=== PATIENT | female | born 1955 | race Caucasian/White ===

== ENCOUNTER 2021-10-15 10:04 | Emergency (ER) | payer MEDICARE | END 2021-10-15 11:25 | disposition home or self-care (01) | LOC: LB.ED 10:04 | DX: J06.9 Acute upper respiratory infection, unspecified (principal); E78.00 Pure hypercholesterolemia, unspecified; I10 Essential (primary) hypertension; Z86.16 Personal history of COVID-19; Z79.82 Long term (current) use of aspirin; Z79.899 Other long term (current) drug therapy | CPT/HCPCS: 36415; 85025; 87804; 87804-59; 99283 ==

== ENCOUNTER 2023-02-19 07:54 | Emergency (ER) | payer MEDICARE ==
[2023-02-19] MEDS ORDERED: Aspirin 81 MG Tab.Chew PO ONE (08:22)
[2023-02-19] MEDS ORDERED: Sodium Chloride 0.9% 10 ML Syringe FLUSH PRN (08:23)
[2023-02-19 08:36] LABS: BASOPHILS ABSOLUTE AUTO 0.04 K/uL (0.02-0.10); BASOPHILS PERCENT AUTO 0.5 % (0.0-0.5); EOSINOPHILS ABSOLUTE AUTO 0.24 K/uL (0.04-0.40); EOSINOPHILS PERCENT AUTO 3.1 % (1.0-5.0); HEMATOCRIT 43.6 % (37.0-47.0); HEMOGLOBIN 14.8 g/dL (11.5-16.5); LYMPHOCYTES ABSOLUTE AUTO 2.08 K/uL (1.50-4.00); LYMPHOCYTES PERCENT AUTO 26.9 % (20.0-40.0); MEAN CORPUSCULAR HEMOGLOBIN 29.6 pg (27.0-32.0); MEAN CORPUSCULAR HGB CONC 33.9 g/dL (31.0-35.0); MEAN CORPUSCULAR VOLUME 87 fL (76-96); MEAN PLATELET VOLUME 10.9 fL (6.0-10.0); NEUTROPHILS ABSOLUTE AUTO 4.68 K/uL (2.00-7.50); NEUTROPHILS PERCENT AUTO 60.5 % (45.0-70.0); PLATELET COUNT,PLT 220 K/uL (150-500); RED CELL DISTRIBUTION WIDTH 13.3 % (11.0-16.0); WHITE BLOOD CELL COUNT,WBC 7.7 K/uL (4.0-11.0)
[2023-02-19 08:46] LABS: ALBUMIN 3.8 g/dL (3.4-5.0); ANION GAP 13.8 mmol/L (5.0-15.0); BILIRUBIN TOTAL 0.6 mg/dL (0.0-1.0); BUN/CREATININE RATIO 16.2 (6-25); CALCIUM 8.9 mg/dL (8.5-10.1); CREATININE 0.74 mg/dL (0.55-1.02); EST CRCL DRUG DOSING (CG) 62.83 mL/min; POTASSIUM,K 3.8 mmol/L (3.5-5.1); PROTEIN TOTAL,TP 7.6 g/dL (6.4-8.2)
[2023-02-19 08:50] LABS: MAGNESIUM 1.7 mg/dL (1.8-2.4); TROPONIN I HIGH SENSITIVITY 4.6 pg/ml (<=60.4)
[2023-02-19] MEDS ORDERED: Ketorolac 30 MG/ML SDV IVPUSH ONE (08:55)
[2023-02-19] MEDS ORDERED: Ketorolac 30 MG/ML SDV ONE (08:59)
== END 2023-02-19 09:34 | disposition home or self-care (01) ==
LOC: LB.ED 07:54
DX: R09.1 Pleurisy (principal); I10 Essential (primary) hypertension; E66.9 Obesity, unspecified; Z79.82 Long term (current) use of aspirin; Z68.31 Body mass index [BMI] 31.0-31.9, adult
CPT/HCPCS: 36415; 71250; 80053; 83735; 84484; 85025; 93005; 96374; 99284; A9270; J1885

== ENCOUNTER 2024-05-07 08:18 | Emergency (ER) | payer MEDICARE ==
[2024-05-07 08:50] LABS: BASOPHILS ABSOLUTE AUTO 0.04 K/uL (0.02-0.10); BASOPHILS PERCENT AUTO 0.6 % (0.0-0.5); EOSINOPHILS ABSOLUTE AUTO 0.17 K/uL (0.04-0.40); EOSINOPHILS PERCENT AUTO 2.5 % (1.0-5.0); HEMATOCRIT 44.6 % (37.0-47.0); LYMPHOCYTES ABSOLUTE AUTO 2.19 K/uL (1.50-4.00); LYMPHOCYTES PERCENT AUTO 32.4 % (20.0-40.0); MEAN CORPUSCULAR HEMOGLOBIN 28.8 pg (27.0-32.0); MEAN CORPUSCULAR HGB CONC 33.6 g/dL (31.0-35.0); MEAN CORPUSCULAR VOLUME 86 fL (76-96); MEAN PLATELET VOLUME 10.5 fL (6.0-10.0); MONOCYTES ABSOLUTE AUTO 0.42 K/uL (0.20-0.80); MONOCYTES PERCENT AUTO 6.2 % (3.0-10.0); NEUTROPHILS ABSOLUTE AUTO 3.93 K/uL (2.00-7.50); NEUTROPHILS PERCENT AUTO 58.3 % (45.0-70.0); PLATELET COUNT,PLT 194 K/uL (150-500); RED CELL DISTRIBUTION WIDTH 13.3 % (11.0-16.0); WHITE BLOOD CELL COUNT,WBC 6.8 K/uL (4.0-11.0)
[2024-05-07] MEDS: HYDROmorphone 2 MG/ML Syringe IVPUSH ONE (08:57)
[2024-05-07] MEDS: Sodium Chloride 0.9% 1,000 ML IV ONE (09:00)
[2024-05-07 09:14] LABS: ALBUMIN 3.8 g/dL (3.4-5.0); ANION GAP 13.7 mmol/L (5.0-15.0); BILIRUBIN TOTAL 0.6 mg/dL (0.0-1.0); BUN/CREATININE RATIO 11.5 (6-25); CALCIUM 9.4 mg/dL (8.5-10.1); CREATININE 0.78 mg/dL (0.55-1.02); EST CRCL DRUG DOSING (CG) 58.78 mL/min; POTASSIUM,K 3.7 mmol/L (3.5-5.1); PROTEIN TOTAL,TP 7.5 g/dL (6.4-8.2)
[2024-05-07 09:18] LABS: APPEARANCE,URINE CLEAR (CLEAR); BILIRUBIN,URINE NEGATIVE (NEGATIVE); COLOR,URINE YELLOW; GLUCOSE,URINE NEGATIVE (NEGATIVE); KETONES,URINE NEGATIVE (NEGATIVE); LEUKOCYTE ESTERASE,URINE NEGATIVE (NEGATIVE); NITRITE,URINE NEGATIVE (NEGATIVE); OCCULT BLOOD,URINE TRACE-INTACT (NEGATIVE); PH,URINE 6.5 (5.0-8.0); PROTEIN,URINE NEGATIVE (NEGATIVE); UROBILINOGEN,URINE 0.2 E.U./dL (0.2-1.0)
[2024-05-07 09:21] LABS: EPITHELIAL CELLS,URINE OCCASIONAL /HPF; RBC,URINE 0-5 /HPF; WBC,URINE NOT SEEN /HPF
[2024-05-07] MEDS: Ondansetron 4 MG/2 ML SDV IVPUSH ONE (09:33)
[2024-05-07] MEDS: Ondansetron 4 MG/2 ML SDV ONE (09:50)
[2024-05-07] MEDS: Naloxone 2 MG/2 ML Syringe IVPUSH PRN (09:57)
[2024-05-07] MEDS: Naloxone 2 MG/2 ML Syringe ONE (09:58)
[2024-05-07] MEDS: diphenhydrAMINE 50 MG/ML SDV IVPUSH ONE (10:07)
[2024-05-07] MEDS: diphenhydrAMINE 50 MG/ML SDV ONE (10:09)
[2024-05-07] MEDS: Ketorolac 30 MG/ML SDV IVPUSH ONE (10:14)
[2024-05-07] MEDS: Ketorolac 30 MG/ML SDV ONE (10:15)
[2024-05-07] MEDS: Acetaminophen/HYDROcodone 325-5 MG Tab PO ONE (10:59)
[2024-05-07] MEDS: Acetaminophen/HYDROcodone 325-5 MG Tab ONE (11:53)
== END 2024-05-07 12:50 | disposition home or self-care (01) ==
LOC: MERGE 08:18 → LB.ED 08:18
DX: R10.9 Unspecified abdominal pain (principal); I10 Essential (primary) hypertension; E78.00 Pure hypercholesterolemia, unspecified; Z79.899 Other long term (current) drug therapy
CPT/HCPCS: 36415; 74176; 80053; 81001; 83690; 84484; 85025; 93005; 96361; 96374; 96375; 99284-25; A9270-GY; J1170; J1200; J1885; J2310; J2405; J7030

== ENCOUNTER 2024-07-20 16:25 | Emergency (ER) | payer MEDICARE ==
[2024-07-20] MEDS: Ondansetron 4 MG/2 ML SDV IVPUSH ONE (16:41)
[2024-07-20] MEDS: fentaNYL 100 MCG/2 ML SDV IVPUSH SCH (16:45)
[2024-07-20] MEDS: Morphine 4 MG/ML VIAL IVPUSH ONE ×2 (17:50→19:15)
[2024-07-20] MEDS: Morphine 4 MG/ML VIAL ONE ×2 (17:52→19:19)
[2024-07-20] MEDS ORDERED: Acetaminophen/HYDROcodone 325-5 MG Tab ONE (19:30)
[2024-07-20] MEDS ORDERED: Ondansetron 4 MG Tab.DIS ONE (19:30)
== END 2024-07-20 19:40 | disposition home or self-care (01) ==
LOC: LB.ED 16:25
DX: S42.252A Displaced fracture of greater tuberosity of left humerus, initial encounter for closed fracture (principal); S42.251A Displaced fracture of greater tuberosity of right humerus, initial encounter for closed fracture; S42.212A Unspecified displaced fracture of surgical neck of left humerus, initial encounter for closed fracture; S42.211A Unspecified displaced fracture of surgical neck of right humerus, initial encounter for closed fracture; I10 Essential (primary) hypertension; E78.00 Pure hypercholesterolemia, unspecified; E66.9 Obesity, unspecified; Z68.29 Body mass index [BMI] 29.0-29.9, adult; Z88.5 Allergy status to narcotic agent; Z79.82 Long term (current) use of aspirin; Z79.899 Other long term (current) drug therapy; W01.198A Fall on same level from slipping, tripping and stumbling with subsequent striking against other object, initial encounter
CPT/HCPCS: 73030-LT; 73030-RT; 73060-LT; 73060-RT; 96374; 96375; 96376; 99283-25; 99284; A9270-GY; J2270; J2405; J3010; Q0162